=== PATIENT | male | born 1970 | race Caucasian/White ===

== ENCOUNTER 2019-05-13 19:47 | Inpatient (IN) ==
[2019-05-13] MEDS ORDERED: MORPHINE 4 MG/1 ML VIAL IV STA (20:03)
[2019-05-13] MEDS ORDERED: ASPIRIN 325 MG TABLET PO STA (20:03)
[2019-05-13] MEDS ORDERED: ONDANSETRON 4 MG/2 ML VIAL IV STA (20:03)
[2019-05-13] MEDS ORDERED: ONDANSETRON 4 MG/2 ML VIAL ONE (20:03)
[2019-05-13] MEDS ORDERED: HEPARIN 5,000 UNIT/1 ML VIAL IV ONE (20:03)
[2019-05-13] MEDS ORDERED: MORPHINE 4 MG/1 ML VIAL ONE (20:03)
[2019-05-13] MEDS ORDERED: HEPARIN 5,000 UNIT/1 ML VIAL ONE (20:04)
[2019-05-13] MEDS ORDERED: ASPIRIN 325 MG TABLET ONE (20:04)
[2019-05-13] MEDS ORDERED: HEPARIN 1,000 UNIT/1 ML VIAL ONE (20:05)
[2019-05-13] MEDS ORDERED: LABETALOL 20 MG/4 ML SYRINGE IV STA (20:07)
[2019-05-13] MEDS ORDERED: hydrALAZINE 20 MG/1 ML VIAL IV STA (20:07)
[2019-05-13] MEDS ORDERED: NITROGLYCERIN 2% OINT 1 INCH/GM PACK TOP STA (20:24)
[2019-05-13] MEDS ORDERED: LIDOCAINE 1% 20 ML VIAL ONE (20:32)
[2019-05-13] MEDS ORDERED: NITROGLYCERIN DRIP 50 MG/250 ML BOTTLE IV ONE (20:32)
[2019-05-13] MEDS ORDERED: HYDROmorphone 2 MG/1 ML VIAL ONE (20:32)
[2019-05-13] MEDS ORDERED: MIDAZOLAM 2 MG/2 ML VIAL ONE (20:32)
[2019-05-13] MEDS ORDERED: VERAPAMIL 5 MG/2 ML VIAL ONE (20:32)
[2019-05-13] MEDS ORDERED: HEPARIN/NACL 0.9% 2 UNITS/ML 1,000 ML IV ONE (20:32)
[2019-05-13 20:46] LABS: Basophils # 0.1 10*3/uL (0.0-0.2); Basophils % 0.6 % (0.0-0.8); Eosinophils # 0.3 10*3/uL (0.0-0.87); Eosinophils % 1.9 % (0.00-10.9); Hematocrit 50.9 VOL% (42.0-52.0); Hemoglobin 16.6 GM/DL (14.0-18.0); Immature Granulocytes % 0.4 %; Immature Granulocytes Absolute 0.05 #; Lymphocytes # 3.9 10*3/uL (1.4-4.0); Lymphocytes % 29.1 % (21.2-54.2); Mean Corpuscular HGB Conc 32.6 GM/DL (32-36); Mean Corpuscular Volume 90.2 FL (87-102); Mean Platelet Volume 9.6 FL (9.6-12.0); Monocytes % 8.9 % (1.7-12.7); Neutrophils % 59.1 % (38.7-73.9); Platelet Count 305 T/CUMM (130-400); Red Blood Count 5.64 MC/CUMM (3.8-5.5); Red Cell Distribution Width 13.7 % (9.3-17.3); White Blood Count 13.5 T/CUMM (4-12)
[2019-05-13] MEDS ORDERED: EPTIFIBATIDE 20,000 MCG/10 ML VIAL ONE (20:50)
[2019-05-13] MEDS ORDERED: EPTIFIBATIDE 75 MG/100 ML BOTTLE IV SCH (20:58)
[2019-05-13 21:05] LABS: Alanine Aminotransferase 47 U/L (16-61); Alkaline Phosphatase 90 U/L (45-117); Aspartate Amino Transferase 23 U/L (0-37); Bilirubin,Total < 0.39 MG/DL (0.2-1.0); Blood Urea Nitrogen 23 MG/DL (7-18); Calcium 9.4 MG/DL (8.5-10.1); Glucose 144 MG/DL (74-106); Osmolality,Calculated 289.1 MOS/KG (273-304); Total Protein 7.6 G/DL (6.4-8.3)
[2019-05-13] MEDS ORDERED: EPTIFIBATIDE 75 MG/100 ML BOTTLE IV ONE (21:24)
[2019-05-13] MEDS ORDERED: TICAGRELOR 90 MG TABLET ONE (21:25)
[2019-05-13] MEDS ORDERED: ZALEPLON 5 MG CAPSULE PO PRN (21:25)
[2019-05-13] MEDS ORDERED: ACETAMINOPHEN 325 MG TABLET PO PRN (21:29)
[2019-05-13] MEDS ORDERED: MAGNESIUM SULF RIDER 2 GM in PREMIX 1 EACH IV PRN (21:29)
[2019-05-13] MEDS ORDERED: MAGNESIUM SULF RIDER 4 GM in PREMIX 1 EACH IV PRN (21:29)
[2019-05-13] MEDS ORDERED: DOCUSATE SODIUM 100 MG CAPSULE PO PRN (21:29)
[2019-05-13] MEDS ORDERED: NICOTINE 21 MG/24 HR PATCH TRANSDERM PRN (21:29)
[2019-05-13] MEDS ORDERED: SODIUM CHLORIDE 0.9% 1,000 ML IV SCH (21:30)
[2019-05-14 04:00] LABS: Basophils # 0.1 10*3/uL (0.0-0.2); Basophils % 0.5 % (0.0-0.8); Eosinophils % 0.2 % (0.00-10.9); Hematocrit 43.7 VOL% (42.0-52.0); Hemoglobin 14.4 GM/DL (14.0-18.0); Immature Granulocytes % 0.5 %; Immature Granulocytes Absolute 0.06 #; Lymphocytes # 2.1 10*3/uL (1.4-4.0); Mean Corpuscular Volume 90.7 FL (87-102); Mean Platelet Volume 9.3 FL (9.6-12.0); Monocytes % 6.4 % (1.7-12.7); Neutrophils % 76.4 % (38.7-73.9); Platelet Count 274 T/CUMM (130-400); Red Blood Count 4.82 MC/CUMM (3.8-5.5); White Blood Count 13.1 T/CUMM (4-12)
[2019-05-14 04:38] LABS: CKMB % 11.1 %; Calcium 8.9 MG/DL (8.5-10.1); Osmolality,Calculated 285.3 MOS/KG (273-304); Risk Ratio 5.53; VLDL CHOLESTEROL 88.4 MG/DL
[2019-05-14 04:47] LABS: Troponin I 76.6 NG/ML (0.00-0.045)
[2019-05-14] MEDS ORDERED: NITROGLYCERIN SL 0.4 MG TABLET SL PRN (07:56)
[2019-05-14] MEDS: CARVEDILOL 6.25 MG TABLET PO SCH ×2 (08:41→16:09)
[2019-05-14] MEDS: TICAGRELOR 90 MG TABLET PO SCH ×2 (08:42→20:07)
[2019-05-14] MEDS: LOSARTAN 25 MG TABLET PO SCH (08:42)
[2019-05-14] MEDS: ASPIRIN EC 81 MG TABLET PO SCH (08:42)
[2019-05-14] MEDS ORDERED: MAGNESIUM HYDROXIDE SUSP 30 ML UDCUP PO PRN (16:31)
[2019-05-14] MEDS ORDERED: diphenhydrAMINE CAP 25 MG CAPSULE PO PRN (16:31)
[2019-05-14 18:40] LABS: Barbiturates Screen,Urine Negative (Negative); Benzodiazepines Screen,Urine Negative (Negative); Cannabinoid Screen,Urine Negative (Negative); Opiate Screen,Urine Negative (Negative); Phencyclidine Screen,Urine Negative (Negative)
[2019-05-14] MEDS ORDERED: ROSUVASTATIN 20 MG TABLET PO SCH (21:00)
[2019-05-15 04:21] LABS: Basophils # 0.1 10*3/uL (0.0-0.2); Basophils % 0.6 % (0.0-0.8); Eosinophils # 0.3 10*3/uL (0.0-0.87); Eosinophils % 2.8 % (0.00-10.9); Hematocrit 41.2 VOL% (42.0-52.0); Hemoglobin 13.6 GM/DL (14.0-18.0); Immature Granulocytes % 0.4 %; Immature Granulocytes Absolute 0.05 #; Lymphocytes # 3.2 10*3/uL (1.4-4.0); Lymphocytes % 26.8 % (21.2-54.2); Mean Corpuscular Volume 91.4 FL (87-102); Mean Platelet Volume 10.2 FL (9.6-12.0); Monocytes % 9.4 % (1.7-12.7); Platelet Count 239 T/CUMM (130-400); Red Blood Count 4.51 MC/CUMM (3.8-5.5); Red Cell Distribution Width 14.1 % (9.3-17.3); White Blood Count 11.8 T/CUMM (4-12)
[2019-05-15 04:45] LABS: Calcium 8.6 MG/DL (8.5-10.1)
[2019-05-15] MEDS: ASPIRIN EC 81 MG TABLET PO SCH (08:29)
[2019-05-15] MEDS: TICAGRELOR 90 MG TABLET PO SCH (08:29)
[2019-05-15] MEDS: LOSARTAN 25 MG TABLET PO SCH (08:30)
[2019-05-15] MEDS: CARVEDILOL 6.25 MG TABLET PO SCH (08:30)
[2019-05-15 08:49] VITALS: BP 102/63
== END 2019-05-15 11:10 | disposition home or self-care (01) | DRG 247 ==
LOC: N.ED 19:47 → N.CC 20:27 → N.EDINP 20:58 → N.CC 21:31 → N.TELEN 05-14 15:12
PROVIDERS: ADMIT Internal Medicine Cardiovascular Disease; ATTEND Internal Medicine Cardiovascular Disease

== ENCOUNTER 2020-02-16 15:39 | Observation (INO) ==
[2020-02-16] MEDS ORDERED: PANTOPRAZOLE 40 MG VIAL IV STA ×2 (16:07→16:09)
[2020-02-16] MEDS ORDERED: ALUM/MAG/SIMETH/LIDO VISC 1:1 30 ML BOTTLE PO STA (16:07)
[2020-02-16] MEDS ORDERED: ONDANSETRON 4 MG/2 ML VIAL IV STA (16:07)
[2020-02-16] MEDS ORDERED: HYDROmorphone 2 MG/1 ML VIAL IV STA (16:07)
[2020-02-16 16:18] LABS: Basophils # 0.1 10*3/uL (0.0-0.2); Basophils % 0.9 % (0.0-0.8); Eosinophils # 0.3 10*3/uL (0.0-0.87); Eosinophils % 3.1 % (0.00-10.9); Hemoglobin 15.7 GM/DL (14.0-18.0); Immature Granulocytes % 0.4 %; Immature Granulocytes Absolute 0.04 #; Lymphocytes # 2.8 10*3/uL (1.4-4.0); Lymphocytes % 29.9 % (21.2-54.2); Mean Corpuscular HGB Conc 33.4 GM/DL (32-36); Mean Corpuscular Volume 89.9 FL (87-102); Mean Platelet Volume 9.4 FL (9.6-12.0); Monocytes % 9.7 % (1.7-12.7); Platelet Count 262 T/CUMM (130-400); Red Blood Count 5.23 MC/CUMM (3.8-5.5); Red Cell Distribution Width 13.2 % (9.3-17.3); White Blood Count 9.4 T/CUMM (4-12)
[2020-02-16 16:38] LABS: Albumin 3.8 G/DL (3.4-5.0); Bilirubin,Total 0.4 MG/DL (0.2-1.0); Calcium 9.1 MG/DL (8.5-10.1); Osmolality,Calculated 277.7 MOS/KG (273-304); Total Protein 7.3 G/DL (6.4-8.3)
[2020-02-16] MEDS ORDERED: hydrALAZINE 20 MG/1 ML VIAL IV STA (17:10)
[2020-02-16 17:31] LABS: PT Patient Result 10.5 SECS (9.8-11.9)
[2020-02-16 18:43] LABS: Apearance,Urine CLEAR (Clear); Bilirubin,Urine Negative (Negative); Blood, Urine Small mg/dL (Negative); Glucose,Urine (UA) Negative (Negative); Ketones,Urine Negative (Negative); Nitrite,Urine Negative (Negative); Protein,Urine Negative; RBC,Urine 2 /HPF (0-4); Squamous Epithelial Cell,Urine Occasional /HPF (0-10); Urine Color Colorless (Yellow); Urine Specific Gravity 1.021 (1.001-1.035); Urine Urobilinogen < 2.0 EU/DL (0.2-1.0); WBC,Urine <1 /HPF (0-6)
[2020-02-16] MEDS ORDERED: GLUCAGON 1 MG VIAL IM PRN (18:43)
[2020-02-16] MEDS ORDERED: ONDANSETRON 4 MG/2 ML VIAL IV PRN (18:43)
[2020-02-16] MEDS ORDERED: MORPHINE 4 MG/1 ML VIAL IV PRN (18:43)
[2020-02-16] MEDS ORDERED: DEXTROSE 10% 250 ML BAG IV PRN (18:43)
[2020-02-16] MEDS ORDERED: NICOTINE 21 MG/24 HR PATCH TRANSDERM PRN (18:43)
[2020-02-16] MEDS ORDERED: ENOXAPARIN 40 MG/0.4 ML SYRINGE SUBCUT SCH (21:00)
[2020-02-16] MEDS ORDERED: ROSUVASTATIN 20 MG TABLET PO SCH (21:00)
[2020-02-16] MEDS: SODIUM CHLORIDE 0.9% 1,000 ML IV SCH (23:58)
[2020-02-17] MEDS: SODIUM CHLORIDE 0.9% 1,000 ML IV SCH ×2 (03:00→07:10)
[2020-02-17 05:06] LABS: Basophils # 0.1 10*3/uL (0.0-0.2); Basophils % 0.8 % (0.0-0.8); Eosinophils # 0.3 10*3/uL (0.0-0.87); Eosinophils % 3.6 % (0.00-10.9); Hematocrit 43.7 VOL% (42.0-52.0); Hemoglobin 14.7 GM/DL (14.0-18.0); Immature Granulocytes % 0.3 %; Immature Granulocytes Absolute 0.03 #; Lymphocytes # 2.6 10*3/uL (1.4-4.0); Lymphocytes % 29.2 % (21.2-54.2); Mean Corpuscular HGB Conc 33.6 GM/DL (32-36); Mean Corpuscular Volume 90.5 FL (87-102); Mean Platelet Volume 9.7 FL (9.6-12.0); Monocytes % 10.9 % (1.7-12.7); Neutrophils % 55.2 % (38.7-73.9); Platelet Count 258 T/CUMM (130-400); Red Blood Count 4.83 MC/CUMM (3.8-5.5); Red Cell Distribution Width 13.3 % (9.3-17.3); White Blood Count 8.9 T/CUMM (4-12)
[2020-02-17 05:44] LABS: Albumin 3.4 G/DL (3.4-5.0); Bilirubin,Total 0.4 MG/DL (0.2-1.0); Calcium 8.6 MG/DL (8.5-10.1); Osmolality,Calculated 283.3 MOS/KG (273-304); Thyroid Stimulating Hormone 1.47 uIU/ml (0.358-3.74); Total Protein 6.4 G/DL (6.4-8.3)
[2020-02-17] MEDS: INSULIN LISPRO 100 UNIT/ML SUBCUT SCH ×3 (07:50→13:48)
[2020-02-17] MEDS ORDERED: carvediloL 6.25 MG TABLET PO SCH (08:00)
[2020-02-17] MEDS ORDERED: PANTOPRAZOLE 40 MG TABLET PO SCH (09:00)
[2020-02-17] MEDS ORDERED: CLOPIDOGREL 75 MG TABLET PO SCH (09:00)
[2020-02-17] MEDS ORDERED: LOSARTAN 25 MG TABLET PO SCH (09:00)
[2020-02-17] MEDS ORDERED: ASPIRIN EC 81 MG TABLET PO SCH (09:00)
[2020-02-17 11:39] VITALS: BP 130/92
[2020-02-18 14:46] LABS: DRVVT Screen Ratio 1.05 ratio (<1.20); INR 1.1 (0.9-1.1)
[2020-02-18 19:07] LABS: Protein S Activity Plasma 117 % (65 - 160)
== END 2020-02-17 14:58 | disposition home or self-care (01) ==
LOC: N.ED 15:39 → N.EDINP 15:39 → N.3E 20:40
PROVIDERS: ADMIT Family Medicine; ATTEND Family Medicine